=== PATIENT | male | born 1985 | race Caucasian/White ===

== ENCOUNTER 2020-05-24 23:08 | Inpatient (IN) | payer SELFPAY ==
[~2020-05-24] VITALS: Ht 172.7 cm; Wt 66.0 kg
[2020-05-24 23:22] LABS: BASO # 0.1 (0.0-0.2); EOS % 0.4 % (0-4.0); GRAN # 3.5 (1.4-6.5); GRAN % 72.1 % (42.2-75.2); HEMATOCRIT 43.4 % (42.0-52.0); LYMPH # 0.7 (1.2-3.4); LYMPH % 14.7 % (20.0-51.0); MEAN CELL VOLUME 102 fl (80.0-100.0); MEAN CORPUSCULAR HEMOGLOBIN 35 pg (27.0-31.0); MEAN CORPUSCULAR HGB CONC 35 g/dl (33.0-37.0); MEAN PLATELET VOLUME 9.8 fl (7.4-10.4); MONO # 0.5 (0.1-0.6); MONO % 11.2 % (1.7-9.3); PLATELET COUNT 120 K/mm3 (130-400); RED BLOOD COUNT 4.24 M/mm3 (4.20-5.60); REDCELL DISTRIBUTION WIDTH-CV 13.4 % (11.5-14.5)
[2020-05-24 23:34] LABS: ALBUMIN 4.9 gm/dL (3.5-5.0); ALKALINE PHOSPHATASE 196 U/L (50-136); ANION GAP 20 mmol/L (7-16); AST,SGOT 244 U/L (15-37); BILIRUBIN,TOTAL 0.8 mg/dL (0.0-1.0); BLOOD UREA NITROGEN 7 mg/dL (9-20); CALCIUM 9.8 mg/dL (8.4-10.2); CARBON DIOXIDE 19 mmol/L (22-30); CHLORIDE 94 mmol/L (98-107); CREATININE, serum 0.63 (0.66-1.25); GLUCOSE 116 mg/dL (74-106); MAGNESIUM 1.7 mg/dL (1.6-2.3); POTASSIUM 3.9 mmol/L (3.4-5.0); SODIUM 134 mmol/L (137-145)
[2020-05-24 23:39] LABS: ALCOHOL(ethanol),MEDICAL < 10 mg/dL
[2020-05-24 23:40] LABS: ALANINE AMINOTRANSFERASE 137 U/L (4-49)
[2020-05-25] VITALS (482 sets, daily range): BP systolic 123–142; BP diastolic 75–100; PULSE 82–107; TEMP 97.9–99; O2SAT 84–99
[2020-05-25] MEDS ORDERED: PROAIR HFA0.09 MG/AC IH (02:02)
[2020-05-25] MEDS ORDERED: RT ADVAIR 128 DISKUS IH (02:02)
--- NOTE | 2020-05-25 02:06 | NUR ---
Received report from HALEY Enamorado in ED. Waiting on patient to arrive to unit.
[2020-05-25 02:15] LABS: COLLECTION METHOD CLEAN CATCH
--- NOTE | 2020-05-25 02:21 | NUR ---
Patient arrived to unit via ER cart. Transferred patient to bed in ICU room 8. Patient a&o x 3. No complaints of n/v or shortness of air. VSS. Patient oriented to room and call light. Patient appeared drowsy but was able to answer questions. Will resume care at this time.
[2020-05-25 02:28] LABS: MUCOUS Present /lpf; PH 6 (5-8); SQUAMOUS EPITHELIAL 0-2 /hpf; URINE APPEARANCE Hazy; URINE BACTERIA None Seen /hpf; URINE BILIRUBIN Negative (NEGATIVE); URINE BLOOD 1+ (NEGATIVE); URINE COLOR Yellow; URINE GLUCOSE Negative (NEGATIVE); URINE KETONE Negative (NEGATIVE); URINE LEUKOCYTE ESTERASE Negative (NEGATIVE); URINE NITRATE Negative (NEGATIVE); URINE PROTEIN(semi-quant) 2+ (NEGATIVE); URINE RBC 0-2 /hpf; URINE UROBILINOGEN Negative (NEGATIVE); URINE WBC 0-2 /hpf
[2020-05-25 02:29] LABS: TRICYCLIC ANTIDEPRESS URINE NEGATIVE
[2020-05-25] MEDS ORDERED: ALLEGRA ALLERGY60 MG PO (02:41)
[2020-05-25 05:59] LABS: BASO % 1.1 % (0.0-2.0); GRAN # 2.6 (1.4-6.5); HEMATOCRIT 39.1 % (42.0-52.0); HEMOGLOBIN 13.7 g/dl (13.5-18.0); LYMPH # 0.6 (1.2-3.4); LYMPH % 14.6 % (20.0-51.0); MEAN CELL VOLUME 102 fl (80.0-100.0); MEAN CORPUSCULAR HEMOGLOBIN 36 pg (27.0-31.0); MEAN CORPUSCULAR HGB CONC 35 g/dl (33.0-37.0); MEAN PLATELET VOLUME 10.3 fl (7.4-10.4); MONO # 0.5 (0.1-0.6); MONO % 13.8 % (1.7-9.3); PLATELET COUNT 87 K/mm3 (130-400); RED BLOOD COUNT 3.83 M/mm3 (4.20-5.60); REDCELL DISTRIBUTION WIDTH-CV 13.4 % (11.5-14.5)
[2020-05-25 06:15] LABS: BILIRUBIN,TOTAL 0.9 mg/dL (0.0-1.0); CALCIUM 8.8 mg/dL (8.4-10.2); CREATININE, serum 0.55 (0.66-1.25); MAGNESIUM 2.5 mg/dL (1.6-2.3); POTASSIUM 3.5 mmol/L (3.4-5.0); TOTAL PROTEIN 6.7 gm/dL (6.4-8.2)
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
--- NOTE | 2020-05-25 10:00 | NUR ---
Patient ambulated to toilet with one assist and use of cane. Patient felt slightly "whoozy" Assisted back to bed, side rails and pads back in place per protocol.
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
--- NOTE | 2020-05-25 18:20 | NUR ---
Report called to Radha on medical unit. Patient to go to Room 313 via wheel chair. Placed on portable tele.
--- NOTE | 2020-05-25 18:45 | NUR ---
Patient brought up to room 313 via wheel chair. All belongings in hand. Patient placed in bed. Overnight RN at bedside to assess. Stable at this time.
--- NOTE | 2020-05-25 19:38 | NUR ---
Resting in bed. Assessment complete. Lungs clear. Heart sounds normal. bowels active x4. Pulses present throughout. No edema noted. IV left forearm without complications. Reports 4/10 back and left leg pain. Patient scoring 4. Given PRN ativan. Patient would like friend-Uriel he lives with updated. Updated friend at this time. All questions answered from patient and friend. Denies other needs at this time. Call light in reach.
--- NOTE | 2020-05-25 22:22 | NUR ---
Gown changed due to diaphoresis. Given PRN ativan for a score of 6. Will monitor.
[2020-05-26] VITALS (11 sets, daily range): BP systolic 121–140; BP diastolic 77–102; PULSE 78–111; TEMP 97.4–98.5
--- NOTE | 2020-05-26 01:54 | NUR ---
Given IV ativan for a score of 4 at this time. Denies other needs. Call light in reach.
--- NOTE | 2020-05-26 04:19 | NUR ---
Resting in bed. Denies needs. Call light in reach.
--- NOTE | 2020-05-26 07:14 | NUR ---
Report given to HALEY Pinzon
--- NOTE | 2020-05-26 08:01 | NUR ---
STANDBY ASSIST TO BATHROOM, PT USED WALKER, PT REPORTS "TOLERABLE" PAIN, MEDICATIONS GIVEN, ETOH DETOX SCALE FOLLOWED, PT ATE 90% BREAKFAST, VITALS TAKEN AND REVIEWED, ASSESSMENT PERFORMED, PT HELPED BACK TO BED, BED ALARM SET, SCD'S ON, CALL LIGHT IN THE BED WITH PT, FRESH ICE WATER BROUGHT IN, NO OTHER NEEDS AT THIS TIME.
--- NOTE | 2020-05-26 17:24 | NUR ---
PT STEADY WITH CANE, HAS GOOD APPETITE, LOW SCORING ON ETOH SCALE, REQUIRED ATIVAN ONCE IN AM AND NOT SINCE, PT AOX4, FLUIDS DC'D, ALL OTHER MEDICATIONS GIVEN, PT REPORTING CHRONIC PAIN AT A 5/10, NO OTHER NEEDS
--- NOTE | 2020-05-26 22:10 | NUR ---
Patient assessed. Alert and oriented x 4, and able to make needs known. Continues on detox protocol per orders. Denies having pain and discomfort at this time. Peripheral INT to left forearm. Site without redness, warmth, swelling, and pain. Denies having SOB and dyspnea. LS CTA. Respirations even and unlabored. HRR. Telemetry in place. Capillary refill less than 3 seconds. Non-tenting skin turgor. BSAx4. Abdomen soft and non-tender. No edema. Voices no questions, needs, or concerns at this time. Resting in recliner with call light within reach.
[2020-05-27 00:15] VITALS: BP 133/99; PULSE 81; TEMP 97.9
[2020-05-27 02:00] VITALS: BP 129/91; PULSE 80; TEMP 97.9
--- NOTE | 2020-05-27 05:58 | NUR ---
Patient had been resting in bed with call light within reach. Patient refusing 0400 and 0600 VS. Patient getting dressed. Patient stated that she just wanted to get ready to leave. Reminded patient that the doctors wouldnt even be in until after breakfast to do rounds. Stated he understood but wanted to be ready. Wanted telemetry and IV site out. Explained to patient that we had to keep them until he was actually discharged and voiced understanding. Patient has not been scoring high enough on detox protocol to receive PRN Ativan this shift. Voices no further questions, needs, or concerns at this time.
[2020-05-27 06:33] LABS: BASO % 0.7 % (0.0-2.0); EOS # 0.1 (0.0-0.7); EOS % 1.4 % (0-4.0); GRAN # 2.8 (1.4-6.5); GRAN % 64.5 % (42.2-75.2); HEMATOCRIT 43.3 % (42.0-52.0); HEMOGLOBIN 14.7 g/dl (13.5-18.0); LYMPH # 1.1 (1.2-3.4); LYMPH % 24.2 % (20.0-51.0); MEAN CELL VOLUME 106 fl (80.0-100.0); MEAN CORPUSCULAR HEMOGLOBIN 36 pg (27.0-31.0); MEAN CORPUSCULAR HGB CONC 34 g/dl (33.0-37.0); MEAN PLATELET VOLUME 11.9 fl (7.4-10.4); MONO # 0.4 (0.1-0.6); PLATELET COUNT 64 K/mm3 (130-400); RED BLOOD COUNT 4.09 M/mm3 (4.20-5.60); REDCELL DISTRIBUTION WIDTH-CV 13.2 % (11.5-14.5)
[2020-05-27 06:48] LABS: ALBUMIN 4.3 gm/dL (3.5-5.0); BILIRUBIN,TOTAL 0.9 mg/dL (0.0-1.0); CALCIUM 9.7 mg/dL (8.4-10.2); CREATININE, serum 0.65 (0.66-1.25); POTASSIUM 3.6 mmol/L (3.4-5.0); TOTAL PROTEIN 7.3 gm/dL (6.4-8.2)
--- NOTE | 2020-05-27 07:33 | NUR ---
PT DRESSED IN ROOM FOR DISCHARGE, WANTS TO LEAVE SOON POSSIBLE
[2020-05-27 07:53] VITALS: BP 134/97; PULSE 103; TEMP 98.5
--- NOTE | 2020-05-27 08:20 | NUR ---
PT HAS NO COMPLAINTS, TOOK MEDICATIONS, VITALS REVIEWED, EAGER FOR DISCHARGE
[2020-05-27] MEDS ORDERED: THIAMINE 1100 MG/TAB PO (08:46)
[2020-05-27] MEDS ORDERED: FOLIC ACID 11 MG/TA1 PO (08:46)
[2020-05-27] MEDS ORDERED: DUO-KAPS1 CAP PO (08:46)
[2020-05-27 10:08] VITALS: BP 129/86; PULSE 94; TEMP 98.4
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
[2020-05-27 11:51] VITALS: BP 137/97; PULSE 102; TEMP 97.6
--- NOTE | 2020-05-27 12:26 | NUR ---
pt escorted out, refused wheelchair.
--- NOTE | 2020-05-27 13:06 | NUR ---
Hospitalist advised Learning And Development Administrator that patient to discharge home today. SW contacted [facility] in [place] to schedule primary care follow up for patient as he currently does not have insurance coverage. FABRIZIO made appointment for 06/13/20 @1500 and provided appointment to patient and munitions handler, Liz. FABRIZIO faxed records to [facility]. FABRIZIO met with patient to review and provide list of drug and alcohol resources including AA meetings. No additional needs at this time.
== END 2020-05-27 12:26 | disposition home or self-care (01) | DRG 897 ==
LOC: COL.ER 23:08 → ICU 05-25 00:51 → MEDICAL 05-25 00:51
PROVIDERS: Hospitalist; Nurse Practitioner Primary Care; Student in an Organized Health Care Education/Training Program; ADMIT Student in an Organized Health Care Education/Training Program
DX: F10.239 Alcohol dependence with withdrawal, unspecified (principal); E87.2 Acidosis; R56.9 Unspecified convulsions; D69.6 Thrombocytopenia, unspecified; G89.29 Other chronic pain; E87.6 Hypokalemia; J45.20 Mild intermittent asthma, uncomplicated; F17.210 Nicotine dependence, cigarettes, uncomplicated
CPT/HCPCS: 99222-AI; 99232-AI; 99239; C9113; J1650; J2060; J3411; J3475; J7030

== ENCOUNTER 2020-07-12 09:56 | Emergency (ER) | payer SELFPAY ==
[~2020-07-12] VITALS: Ht 175.3 cm; Wt 72.7 kg
[~2020-07-12 09:56] MED LIST: ALLEGRA ALLERGY60 MG PO; DUO-KAPS1 CAP PO; FOLIC ACID 11 MG/TA1 PO; PROAIR HFA0.09 MG/AC IH; RT ADVAIR 128 DISKUS IH; THIAMINE 1100 MG/TAB PO
[2020-07-12 09:59] VITALS: TEMP 97.4
[2020-07-12 10:36] LABS: BASO % 0.8 % (0.0-2.0); EOS % 0.4 % (0-4.0); GRAN # 2.4 (1.4-6.5); GRAN % 50.8 % (42.2-75.2); HEMATOCRIT 46.8 % (42.0-52.0); HEMOGLOBIN 16.9 g/dl (13.5-18.0); LYMPH # 1.7 (1.2-3.4); LYMPH % 36.8 % (20.0-51.0); MEAN CELL VOLUME 98 fl (80.0-100.0); MEAN CORPUSCULAR HEMOGLOBIN 35 pg (27.0-31.0); MEAN CORPUSCULAR HGB CONC 36 g/dl (33.0-37.0); MEAN PLATELET VOLUME 10.9 fl (7.4-10.4); MONO # 0.5 (0.1-0.6); MONO % 9.7 % (1.7-9.3); RED BLOOD COUNT 4.77 M/mm3 (4.20-5.60); REDCELL DISTRIBUTION WIDTH-CV 12.5 % (11.5-14.5)
[2020-07-12 10:50] LABS: ALBUMIN 4.9 gm/dL (3.5-5.0); BILIRUBIN,TOTAL 1.6 mg/dL (0.0-1.0); CALCIUM 9.9 mg/dL (8.4-10.2); CREATININE, serum 0.62 (0.66-1.25); PLATELET COUNT 59 K/mm3 (130-400)
[2020-07-12 10:51] LABS: POTASSIUM 2.6 mmol/L (3.4-5.0)
[2020-07-12] MEDS ORDERED: LIBRIUM 25M25 MG/CAP PO (20:04)
[2020-07-12 22:45] VITALS: BP 144/70; PULSE 99
== END 2020-07-12 22:46 | disposition home or self-care (01) ==
LOC: COL.ER 09:56
PROVIDERS: Physician Assistant
DX: F10.239 Alcohol dependence with withdrawal, unspecified (principal); F10.129 Alcohol abuse with intoxication, unspecified; G40.909 Epilepsy, unspecified, not intractable, without status epilepticus; Y90.8 Blood alcohol level of 240 mg/100 ml or more
CPT/HCPCS: C9113; J1885; J2060; J2405; J3411; J3475; J7030

== ENCOUNTER 2020-08-03 23:15 | Emergency (ER) | payer MEDICAID ==
[~2020-08-03] VITALS: Ht 172.7 cm; Wt 72.7 kg
[~2020-08-03 23:15] MED LIST changes: +LIBRIUM 25M25 MG/CAP PO
[2020-08-04 02:22] VITALS: BP 130/92; PULSE 103; TEMP 97.9
== END 2020-08-04 02:31 | disposition home or self-care (01) ==
LOC: COL.ER 23:15
DX: F10.229 Alcohol dependence with intoxication, unspecified (principal); S90.822A Blister (nonthermal), left foot, initial encounter; J45.909 Unspecified asthma, uncomplicated; Z79.51 Long term (current) use of inhaled steroids; X08.8XXA Exposure to other specified smoke, fire and flames, initial encounter